=== PATIENT | male | born 1940 | race Caucasian/White ===

== ENCOUNTER 2020-05-04 22:19 | Emergency (ER) | payer MEDICARE, OTHER ==
[2020-05-04] MEDS ORDERED: Bacitracin Oint 1 GM U/D Packet TOP ONE (22:43)
[2020-05-04] MEDS ORDERED: Lidocaine 1% with EPINEPHrine 1:100,000 50 ML MDV SUBCUT STA (22:43)
--- NOTE | 2020-05-04 22:43 | EDM.PDOC ---
ED HPI GENERAL MEDICAL PROBLEM - General Chief Complaint: Laceration Stated Complaint: ACCIDENT VIA [facility] Time Seen by Provider: 05/04/20 22:22 Source of Information: Reports: Patient, Family History Limitations: Reports: Intoxication - History of Present Illness INITIAL COMMENTS - FREE TEXT/NARRATIVE: 79-year-old gentleman presents emergency department today via EMS services following a fall he has been heavily consuming alcohol tonight he tripped hit his head on the sidewalk he has a large laceration on top of his skull denies any loss of consciousness no nausea vomiting - Related Data Allergies Allergy/AdvReac Type Severity Reaction Status Date / Time Penicillins Allergy Rash Verified 05/04/20 22:24 Home Meds: Home Meds Lisinopril 5 mg PO DAILY 02/02/15 [History] atenoloL [Atenolol] 12.5 mg PO DAILY 02/02/15 [History] hydroCHLOROthiazide [Hydrochlorothiazide] 25 mg PO DAILY 02/02/15 [History] Past Medical History - Past Surgical History HEENT Surgical History: Reports: Tonsillectomy Other Respiratory Surgeries/Procedures: tracheotomy GI Surgical History: Reports: Appendectomy Social & Family History - Family History Family Medical History: Noncontributory - Tobacco Use Smoking Status *Q: Current Every Day Smoker Years of Tobacco use: 10 Packs/Tins Daily: 0.5 - Caffeine Use Caffeine Use: Reports: None - Alcohol Use Days Per Week of Alcohol Use: 2 Number of Drinks Per Day: 10 Total Drinks Per Week: 20 - Recreational Drug Use Recreational Drug Use: No ED ROS GENERAL - Review of Systems Review Of Systems: See Below Constitutional: Reports: No Symptoms HEENT: Reports: No Symptoms Respiratory: Reports: No Symptoms Cardiovascular: Reports: No Symptoms GI/Abdominal: Reports: No Symptoms Skin: Reports: Wound Neurological: Reports: No Symptoms ED EXAM, SKIN/RASH Exam: See Below Exam Limited By: No Limitations General Appearance: Alert, WD/WN, No Apparent Distress Eye Exam: Bilateral Eye: EOMI, Normal Inspection, PERRL Ears: Normal External Exam, Normal Canal, Hearing Grossly Normal, Normal TMs Head: Normocephalic, Other (Large laceration approximately 12 cm on top of the scalp) Neck: Normal Inspection, Supple, Non-Tender, Full Range of Motion Respiratory/Chest: No Respiratory Distress, Lungs Clear, Normal Breath Sounds, No Accessory Muscle Use, Chest Non-Tender Cardiovascular: Regular Rate, Rhythm, No Murmur GI/Abdominal: Soft, Non-Tender Extremities: Normal Inspection, Other (No tenderness shoulders elbows wrists bilaterally pelvic rocks is negative no tenderness to knees or ankles bilate rally) Neurological: Alert, No Motor/Sensory Deficits ED SKIN PROCEDURES - Laceration/Wound Repair Head Appearance: Subcutaneous, Irregular, Clean Distal NVT: Neuro & Vascular Intact, No Tendon Injury Anesthetic Type: Local Local Anesthesia - Lidocaine (Xylocaine): 1% with EPI Local Anesthetic Volume: 4cc Skin Prep: Saline Saline Irrigation (cc's): 80 Exploration/Debridement/Repair: Wound Explored, In a Bloodless Field, Explored to Base Closed with: [place] Lac/Wound length In cm: 12 # of Sutures: 13 Suture Type: Interrupted Sterile Dressing Applied: Nurse Tetanus Status Addressed: Yes (2010) Complications: No Course - Vital Signs Last Recorded V/S: Last Vital Signs Temp 97.1 F 05/04/20 22:23 Pulse 67 05/04/20 23:05 Resp 16 05/04/20 22:23 BP 104/49 L 05/04/20 23:05 Pulse Ox 99 05/04/20 23:05 - Orders/Labs/Meds Meds: Medications Discontinued Medications Generic Name Dose Route Start Last Admin Trade Name Shilpa PRN Reason Stop Dose Admin Bacitracin 1 dose 05/04/20 22:43 05/04/20 23:24 Bacitracin Oint 1 Gm TOP 05/04/20 22:44 1 dose ONETIME ONE Administration Lidocaine/Epinephrine 20 ml 05/04/20 22:43 05/04/20 23:08 Xylocaine 1% With Epinephrine 1:100,000 SUBCUT 05/04/20 22:44 20 ml NOW STA Administration Departure - Departure Time of Disposition: 23:27 Disposition: Home, Self-Care 01 Condition: Fair Clinical Impression: Scalp laceration Qualifiers: Encounter type: initial encounter Qualified Code(s): S01.01XA - Laceration without foreign body of scalp, initial encounter Head injury Qualifiers: Encounter type: initial encounter Qualified Code(s): S09.90XA - Unspecified injury of head, initial encounter - Discharge Information Instructions: Laceration Care, Adult, Sutures, [place], or Adhesive Wound Closure, [id number] Referrals: PCP,None [Primary Care Provider] - Forms: ED Department Discharge Additional Instructions: Follow-up primary care or return to the emergency department in 10 days for suture removal, call or return to the emergency department worsening of symptoms Sepsis Event Note (ED) - Evaluation Sepsis Screening Result: No Definite Risk - Focused Exam Vital Signs: Vital Signs Temp Pulse Resp BP Pulse Ox 05/04/20 23:05 67 104/49 L 99 05/04/20 22:23 97.1 F 64 16 97/47 L 98 - Assessment/Plan Plan: Assessment Acuity = acute Site and laterality = head injury with scalp laceration complicated gentleman who is intoxicated Etiology = secondary to fall Manifestations = none Location of injury = Home Lab values = CT scan of the head shows no acute process Plan Staple removal in 10 days, follow-up primary care return to the emergency department for staple removal This note was dictated using [employer] voice recognition software please call with any questions on syntax or grammar.
[2020-05-04 23:05] VITALS: BP 104/49; PULSE 67
--- NOTE | 2020-05-04 23:26 | CRLCT ---
INDICATION: FELL HEAD INJURY CT HEAD WITHOUT CONTRAST TECHNIQUE: Multiple axial CT images were performed through the head without intravenous contrast administration. COMPARISON: No previous studies are currently available for comparison. FINDINGS: No acute intracranial hemorrhage is identified. No extra-axial collections are evident and there is no mass effect or midline shift. There is mild diffuse age-related brain atrophy. Ventricular size and configuration are within normal limits for the patient`s age. Christensen-white differentiation is within normal limits. There is patchy hypodensity in the periventricular white matter, a nonspecific finding which most likely reflects chronic small vessel ischemic change. A small right frontal scalp contusion is noted. Osseous structures are within normal limits and no fractures are seen. Included portions of the paranasal sinuses and mastoid air cells are normally aerated. IMPRESSION: 1. No acute intracranial abnormality identified. 2. Small right frontal scalp contusion. No fracture. 3. Mild age-related brain atrophy and white matter hypodensity consistent with chronic small vessel ischemic change. MICHAEL GALINDO MD [employer] Dictated by: Lang Galindo MD @ 05/04/2020 23:24:50 (Electronically Signed)
== END 2020-05-04 23:46 | disposition home or self-care (01) ==
LOC: JP.ED 22:19
DX: S01.01XA Laceration without foreign body of scalp, initial encounter (principal); F17.210 Nicotine dependence, cigarettes, uncomplicated; Z88.0 Allergy status to penicillin; W01.198A Fall on same level from slipping, tripping and stumbling with subsequent striking against other object, initial encounter
CPT/HCPCS: 12004; 70450; 99282; 99284-25